=== PATIENT | female | born 1955 | race Asian ===

== ENCOUNTER 2023-08-03 16:24 | Observation (INO) | payer SELFPAY ==
[2023-08-03 17:30] VITALS: BMI 34.0
[2023-08-03 17:44] LABS: HEMATOCRIT 35.4 % (32.4-45.2); HEMOGLOBIN 11.6 G/dL (10.7-15.3); MCHC 32.7 g/dl (32.0-36.0); MEAN CELL VOLUME 82.7 fl (80-96); MEAN PLT VOLUME 8.4 fl (7.5-11.1); PLATELET COUNT 280.5 10^3/uL (134-434); RBC 4.28 10^6/uL (3.60-5.2); RDW 15.9 % (11.6-15.6); WHITE BLOOD COUNT 7.5 10^3/uL (4.0-10.8)
[2023-08-03 18:04] LABS: PLATELET ESTIMATE ADEQUATE
[2023-08-03 18:07] LABS: ALBUMIN 3.7 g/dl (3.4-5.0); BILIRUBIN,TOTAL 0.3 mg/dl (0.2-1); CALCIUM 9.2 mg/dl (8.5-10.1); CREATININE 0.9 mg/dl (0.6-1.3); POTASSIUM 4.8 mmol/L (3.5-5.1); TOT PROT 7.1 g/dl (6.4-8.2)
[2023-08-03] MEDS ORDERED: ASPIRIN 81 MG CHEWABLE TABLETS ONE (20:19)
[2023-08-03] MEDS: ASPIRIN 81 MG CHEWABLE TABLETS PO ONE (20:21)
[2023-08-03] MEDS ORDERED: ACETAMINOPHEN 325 MG TABLET (FP) PO PRN (20:44)
[2023-08-03] MEDS ORDERED: guaiFENesin 200 MG/10 ML 10 ML UNIT-DOSE CUPS PO PRN (23:35)
[2023-08-04] MEDS: ALBUTEROL SO4 0.083% IH SOL 2.5 MG/3 ML VIAL.NEB. NEB PRN (08:37)
[2023-08-04 09:02] VITALS: BP 125/47; PULSE 53; RESP 17; TEMP 98
[2023-08-04 09:07] LABS: CALCIUM 8.7 mg/dl (8.5-10.1); MAGNESIUM 1.9 mg/dL (1.8-2.4); POTASSIUM 4.7 mmol/L (3.5-5.1)
[2023-08-04 09:13] LABS: BASO % 0.9 % (0-2.0); EOS % 2.2 % (0-4.5); HEMATOCRIT 32.5 % (32.4-45.2); HEMOGLOBIN 10.4 GM/dL (10.7-15.3); LYMPH % 29.6 % (8-40); MCH 26.1 pg (25.7-33.7); MEAN CELL VOLUME 81.5 fl (80-96); MEAN PLT VOLUME 8.1 fl (7.5-11.1); MONO % 7.6 % (3.8-10.2); NEUT % 59.7 % (42.8-82.8); PLATELET COUNT 261 10^3/uL (134-434); RBC 3.99 M/mm3 (3.60-5.2); RDW 14.4 % (11.6-15.6); WHITE BLOOD COUNT 6.1 K/mm3 (4.0-10.0)
[2023-08-04] MEDS: ASPIRIN 81 MG CHEWABLE TABLETS PO SCH (10:38)
[2023-08-04] MEDS: amLODIPine BESYLATE 5 MG TABLET (FP) PO SCH (10:38)
[2023-08-04] MEDS: LIDOCAINE 5% TOPICAL PATCH TP SCH (10:38)
[2023-08-04] MEDS ORDERED: LIDOCAINE PATCH REMOVAL MC SCH (22:00)
== END 2023-08-04 12:52 | disposition home or self-care (01) ==
LOC: FER 16:24 → FM/S 19:08 → INTOOBSV 19:08
PROVIDERS: ADMIT Internal Medicine; ATTEND Internal Medicine
PROC: 3E0F7GC Introduction of Other Therapeutic Substance into Respiratory Tract, Via Natural or Artificial Opening (ICD-10-PCS; principal; 2023-08-03)
DX: J45.909 Unspecified asthma, uncomplicated (principal); R07.9 Chest pain, unspecified; R79.89 Other specified abnormal findings of blood chemistry; R07.81 Pleurodynia; R05.9 Cough, unspecified; R06.02 Shortness of breath; E66.9 Obesity, unspecified; M54.2 Cervicalgia
CPT/HCPCS: 0241U-QW; 36415; 71046-TC-FY; 71101-TC-RT-FY; 71275-TC; 80048; 80053; 80061; 83036; 83690; 83735; 84439; 84443; 84484; 85025; 85027; 93005; 94640; 97116-GP; 97162-GP; 99285-25; G0378; Q9967

== ENCOUNTER 2024-10-04 18:39 | Emergency (ER) | payer SELFPAY ==
[2024-10-04 18:46] VITALS: BP 134/68; PULSE 84; RESP 16; TEMP 97.2; BMI 34.0
[2024-10-04] MEDS ORDERED: ALBUTEROL SO4 2.5/IPRATROPIUM 0.5 INH SOL 3 ML VIAL.NEB. NEB ONE (19:52)
[2024-10-04] MEDS: ALBUTEROL SO4 2.5/IPRATROPIUM 0.5 INH SOL 3 ML VIAL.NEB. NEB ONE (19:57)
[2024-10-04] MEDS ORDERED: AZITHROMYCIN 500 MG TABLET ONE (20:46)
[2024-10-04] MEDS: AZITHROMYCIN 250 MG TABLET PO ONE (20:49)
== END 2024-10-04 20:52 | disposition home or self-care (01) ==
LOC: FER 18:39
PROC: 3E0F7GC Introduction of Other Therapeutic Substance into Respiratory Tract, Via Natural or Artificial Opening (ICD-10-PCS; principal; 2024-10-04)
DX: J40 Bronchitis, not specified as acute or chronic (principal); R05.9 Cough, unspecified; R06.2 Wheezing
CPT/HCPCS: 71046-TC-FY; 99283-25